=== PATIENT | male | born 1940 | race Caucasian/White ===

== ENCOUNTER 2016-12-09 17:07 | Inpatient (IN) ==
--- NOTE | 2016-12-09 17:49 | Emergency Department Note ---
Disposition Clinical Impression: Retroperitoneal hematoma, Hemorrhagic shock, History of mitral valve repair Hypotension Qualifiers: Hypotension type: unspecified hypotension type Qualified Code(s): I95.9 - Hypotension, unspecified Disposition: Admitted As Inpatient Condition: Critical Time of Disposition: 22:23 Abdominal Pain HPI - General Chief Complaint: ED Abdominal Pain Stated Complaint: abdominal pain Time Seen by Provider: 12/09/16 17:17 Source: patient, EMS Mode of arrival: EMS Limitations: no limitations Nursing Notes Reviewed: Yes Vital Signs Reviewed: Yes - History of Present Illness HPI Narrative: 76-year-old male presents to the ED via EMS as a [place] resident for abdominal pain. EMS reports left lower quadrant abdominal pain over the past 3 days. [facility] and was sent here for further evaluation. Patient reports sharp constant abdominal pain in the left lower quadrant. Denies any radiation of the pain. Denies any aggravating factors. Denies any nausea or vomiting. Does report constipation over the past 3 days. Denies any urinary complaints. Denies any fevers or recent illness. Denies any chest pain or shortness of breath. [facility] he had a elevated white blood cell count 27.2. His code status is DNR CCA. History of CAD, pacemaker, squamous cell carcinoma of the lung, CVA with left- sided weakness, splenectomy Pain Scale: 6 - Related Data Home Medications Medication Instructions Recorded Confirmed Acetaminophen [Tylenol] 650 mg PO Q8H PRN 12/09/16 12/09/16 Albuterol Sulfate [Albuterol 2 puff IH Q6H PRN 12/09/16 12/09/16 Inhaler] Allopurinol [Zyloprim 300 MG] 300 mg PO DAILY 12/09/16 12/09/16 Aspirin Enteric Coated [Aspirin EC] 81 mg PO DAILY 12/09/16 12/09/16 Benzonatate [Tessalon] 100 mg PO TID PRN 12/09/16 12/09/16 Bisacodyl [Dulcolax] 10 mg PO Q48H PRN 12/09/16 12/09/16 Calcium Carbonate/Vitamin D3 2 each PO BID 12/09/16 12/09/16 [Calcium 250+D Tablet] Cetirizine HCl [Zyrtec] 10 mg PO DAILY PRN 12/09/16 12/09/16 Cholecalciferol (D-3) [Vitamin D] 1,000 unit PO DAILY 12/09/16 12/09/16 Docusate [Colace] 100 mg PO BID 12/09/16 12/09/16 Enoxaparin [Lovenox] 80 mg SQ Q12HR 12/09/16 12/09/16 Ferrous Sulfate 325 mg PO BIDWM 12/09/16 12/09/16 Furosemide [Lasix] 20 mg PO DAILY 12/09/16 12/09/16 Gabapentin [Neurontin] 800 mg PO BID 12/09/16 12/09/16 HYDROcodone/Acet 5/325 mg [[place] 2 tab PO Q6H PRN 12/09/16 12/09/16 5-325 mg] Ipratropium/Albuterol Neb [Duoneb] 3 ml IH QID PRN 12/09/16 12/09/16 L. Acidophilus/Pectin, [place] 1 each PO BID 12/09/16 12/09/16 [Acidophilus Probiotic Capsule] Losartan [Cozaar] 25 mg PO DAILY 12/09/16 12/09/16 Magnesium Hydroxide [Milk of 2,400 mg PO DAILY PRN 12/09/16 12/09/16 Magnesia] Magnesium Oxide [Mag-Ox] 400 mg PO BID 12/09/16 12/09/16 Melatonin [Melatin] 9 mg PO HS 12/09/16 12/09/16 Metoprolol [Lopressor] 25 mg PO BID 12/09/16 12/09/16 Mineral Oil/Petrolatum,White 1 appl OP HS 12/09/16 12/09/16 [Refresh P.m. Ointment] Nicotine Patch [Nicoderm] 7 mg TD DAILY 12/09/16 12/09/16 Potassium Chloride 20% [Potassium 20 meq PO Q48H 12/09/16 12/09/16 Chloride] Sennosides/Docusate Sodium [Senna 2 each PO DAILY 12/09/16 12/09/16 Plus] Sertraline [Zoloft] 100 mg PO DAILY 12/09/16 12/09/16 Simvastatin [Zocor] 20 mg PO HS 12/09/16 12/09/16 Tamsulosin [Flomax] 0.8 mg PO DAILY 12/09/16 12/09/16 Tiotropium [Spiriva] 18 mcg IH 0700 12/09/16 12/09/16 Warfarin [Coumadin] 12 mg PO DAILY 12/09/16 12/09/16 Xanthan Gum [Simplythick] 1 spray PO AD 12/09/16 12/09/16 guaiFENesin [Guaifenesin] 400 mg PO TID PRN 12/09/16 12/09/16 predniSONE [PredniSONE] See Taper PO TAPER 12/09/16 12/09/16 traZODone [TraZODone] 50 mg PO HS 12/09/16 12/09/16 Allergies Allergy/AdvReac Type Severity Reaction Status Date / Time felodipine Allergy See Verified 12/09/16 17:11 Comments fentanyl Allergy See Verified 12/09/16 17:11 Comments lisinopril Allergy See Verified 12/09/16 17:11 Comments Terazosin Allergy See Verified 12/09/16 17:11 Comments All systems ED: reviewed and negative except as stated. Constitutional: Denies: fever, chills Cardiovascular: Denies: chest pain, dyspnea on exertion Respiratory: Denies: cough, dyspnea Gastrointestinal: Reports: abdominal pain, constipation. Denies: nausea, vomiting, diarrhea Genitourinary: Denies: urgency, dysuria Musculoskeletal: Denies: back pain, neck pain Integumentary: Denies: rash, lesions Abdominal Pain PMH - Past Medical History Medical history: Reports: arthritis, coronary artery disease, CVA, hypertension , other Male Surgical History: Reports: pacemaker/AICD, splenectomy, other Psychiatric history: Reports: anxiety, depression - Social History Smoking status: Former smoker Alcohol use: Reports: none Drug use: Reports: none Physical Exam - General Limitations: no limitations General appearance: alert, in no apparent distress, other (soft spoken) - Head Head exam: atraumatic, normocephalic, normal inspection - Eye Eye exam: Present: normal appearance. Absent: scleral icterus - ENT ENT exam: normal exam, mucous membranes moist - Neck Neck exam: Present: normal inspection, full ROM - Chest Chest inspection: Present: normal inspection, symmetric chest wall rise, other ( pacemaker left chest wall) - Respiratory Respiratory exam: Present: normal lung sounds bilaterally. Absent: respiratory distress, wheezes - Expanded Respiratory Exam Location: decreased breath sounds: Right, Left - Cardiovascular Cardiovascular exam: Present: regular rate, normal rhythm, clicks (mitral, heard in the left sternal border), other (paced rhythm) - Abdominal Exam Abdominal exam: Present: soft, tenderness, distention (distended abdomen mostly over LLQ), guarding (left quadrant), normal bowel sounds, mass (LLQ, not pulsatile), hernia (umbilical), other (ecchymosis to LLQ). Absent: rebound, rigidity, pulsatile mass Abdominal tenderness: Present: LLQ, moderate - Rectal Exam Right Of Way Agent present during exam: Yes Rectal exam: Present: normal rectal tone, other (green loose stool around the anus and in the rectal vault). Absent: black stool, bloody stool, hemorrhoids - Extremities Exam Extremities exam: Present: normal inspection, normal capillary refill, other ( LEFT SIDE WEAKNESS). Absent: tenderness, pedal edema, calf tenderness - Neurological Exam Neurological exam: Present: alert, oriented X3 - Expanded Neurological Exam Patient oriented to: Present: person, place, time Speech: Present: fluid speech Cranial nerves: EOM function (II, III, IV, ): Normal, facial sensation (V): Normal, facial palsy (VII): Normal, gag reflex (IX): Normal, spinal accessory function (XI): Normal, tongue deviation (XII): Normal Motor strength - LUE: 1/5 Motor strength - RUE: 5/5 Motor strength - LLE: 1/5 Motor strength - RLE: 5/5 - Psychiatric Psychiatric exam: Present: normal affect, normal mood - Skin Skin exam: Present: warm, dry, intact, normal color. Absent: cyanosis, diaphoresis Course Course Narrative: 76-year-old male presents with left lower quadrant abdominal pain. Ongoing for the past 3 days. [facility]. He had developed an anterior wall hematoma in the LLQ thought due to lovenox injections. He is tender to the left lower quadrant his abdomen is moderately soft and distended with guarding. There is an ecchymosis to the LLQ. Normal bowel sounds in all 4 quadrants. Left side weakness from prior CVA. Alert and oriented to person place and time. Review of his lab values obtained at outside hospital reveals a leukocytosis 27.2. Patient is afebrile here. Concerning for possible diverticulitis or other abdominal process such as bleeding. CT scan of the abdomen and pelvis ordered. Denies known AAA. - Reevaluation(s) Reevaluation #1: Patient continues to await CT scan. Notified of BP low SBP 60s. Patient was somnolent but easily arousable. He currently has IV access in the right forearm 20G. Will give 1L of NS. Patient reportedly lives 90/60s per review of medical chart and EMS reports. Review of records reveals manager terminal anticoagulant use of Coumadin and Lovenox. He has history of abdominal wall hematoma from the anticoagulant. INR 2.[address] femoral CVC for possible pressor support. Bedside ultrasound of his abdomen, due to habitus unable to obtain good views of his aorta or IVC. Appears to be a fluid collection in the LLQ, concern for bowel gas to suggest abscess from diverticulitis, volvulus or possible hematoma. When his BP is in the 70s-80s he is awake and alert interactive. Time: 18:22 Reevaluation #2: Pressure responding to fluids. Right femoral CVC placed without complications. Current BP is 115/64. He is stable to go to CT scan of abdomen and pelvis. If pressures continue remain low may consider pressors. Time: 19:17 Reevaluation #3: Radiologist called on CT results to Dr. Hanley. Reports large retroperitoneal hematoma, unable to determine acuity. After discussion with IR, will obtain CTA of abdomen and pelvis. Pressures are labile. Will consider blood transfusion. Will recheck a H/H here [facility]. Time: 20:00 Additional Reevaluation(s): CTA of abdomen/pelvis reveals active bleed to inferior epigastric artery. Will page Dr. Beckman, IR, again. Patient has been updated and is aware of the situation. Continues to voice that he is DNR-CCA. Discussed that we will continue to do everything up until cardiac arrest. Patient voices understanding and continues to agree with treatment and plan. Currently is normotensive 106/ 80 with 3rd liter and blood transfusing. H/H 9.9. Stool hemoccult is positive. Will need admission to ICU. Continues to awake and answering questions. Complaining of pain at the moment now. Due to hypotension secondary to hemorrhagic shock limited by medications to give. Allergy to fentanyl. Will give small dose of morphine 2mg. Unable to access his femoral nerve due to sequelae of prior CVA. Does not wish for us to contact anyone at this time, such as his , number provided on [facility] [phone] [id number] last BP 77/46, he has received 3L of NS and on 2nd uPRBC. Last BP above SBP 90s was from 2250. Continues to be awake and alert and agitated. Earlier when he was in 60s he was somnolent and easily arousable. I do believe these blood pressures and he likely does not live above SBP 100s. - Consultations Consultation #1: Reviewed the CT of abd/pelvis prior to radiology interpretation, reveals a large left retroperitoneal hematoma. Speaking to IR Dr. Beckman for possible embolization and intervention. Unable to determine any active bleeding due to absence of contrast which was due to urgency and elevated creatinine. His INR is 2.1 but he has history of mitral valve replacement. IR aware of his labs and labile blood pressures, continues to recommend CTA of abdomen and pelvis to locate active bleed. Reports if there is active bleeding, here at [facility] have all the capabilities for any intervention as needed. Will continue with 2nd liter of NS. If not responding will give blood. Time: 19:51 Consultation #2: Speaking again to Dr. Underwood, IR, for consult and any recommendations on intervention. Would like INR 1.5 even 1.7 before any intervention. Since the inferior epigastric artery is superficial may attempt to tamponade with pressure. Issues with INR and mitral valve. Discuss placing on a heparin drip, Vit K, and stopping coumadin to correct INR. Do not feel comfortable with order at this time. Will speak to hospitalist for admission to ICU. IR ok to consult through night if worse. Plan to round on patient in the morning they report. Time: 21:44 Consultation #3: Spoke with on-call hospitalist Dr. Bee, ok to admit for hemorrhagic shock and retroperitoneal hematoma. No further orders at this time Time: 22:53 Additional Consultation(s): Spoke with Dr. Vieyra, recommends FFP during procedure if needed. Agree to not start Vit K or heparin drip. Advises strongly against Vit K due to mitral valve replacement. Will see patient tomorrow morning. Hospitalist called back requesting to get surgery involved. Spoke with Dr. Jiménez, no surgical intervention for retroperitoneal hematoma. Treatment is to reverse anticoagulate but complicated due to mitral valve. If needed, transfer to [place] or another [place] facility. Vital Signs Temperature 96.8 F L 12/09/16 17:12 Pulse Rate 72 12/09/16 17:12 Respiratory Rate 18 12/09/16 17:12 Blood Pressure 84/70 12/09/16 17:12 O2 Sat by Pulse Oximetry 97 12/09/16 17:12 Temperature 97.6 F 12/09/16 23:42 Pulse Rate 62 12/09/16 23:55 Respiratory Rate 18 12/09/16 23:55 Blood Pressure 72/49 12/09/16 23:55 O2 Sat by Pulse Oximetry 95 12/09/16 23:55 Oxygen Delivery Oxygen Delivery Nasal Cannula Procedures - Central Line Placement Right Femoral Central Line Inserted*: Yes Central Line Catheter Replacement*: No Central Line Insertion: emergent Consent Obtained: verbal consent Procedural Pause: verify patient name and date of , timeout performed per policy, laura and assess the site, assemble equipment and verify supplies, perform hand hygiene Patient Placed on Monitor/Pulse Ox: Yes During the Procedure: clinician is wearing sterile gloves, cap, mask,& gown during insertion, sterile field and sterile technique are maintained, patient's face is covered with drape or mask and wearing a cap, everyone in room is wearing a mask Central Line Prep: Chlorhexidine scrub Prep the Procedure Site: apply chloraprep to the skin using a back and forth scrubbing motion, apply chloraprep for 30 seconds (upper body), 1-2 min ( femoral sites) (applied to right and left femoral sites), allow prep to dry, drape the patient with a full body drape Local Anesthetic: lidocaine 1% Amount of anesthesia used (mL): 3 Ultrasound Used for Placement: Yes Central Line Lumen Inserted: triple Post Procedure: sutured in place, good blood return, all ports aspirated, flushed, capped, sterile dressing applied, guide wire removed and visualized Post Procedure X-Ray: other (femoral CVC, no CXR) Patient Tolerated Procedure: well Complications: none Name of Clinician Inserting Central Line: Gaurang Dickerson Clinician Assisting/Completing Checklist: Dr. Brennan Ovalles Date: 12/09/16 Time: 19:19 Abdominal Pain - Differential Diagnosis Differential Diagnosis: Likely: abdominal pain non-specific, AAA - Medical Records Medical records reviewed: Yes I reviewed the patient's medical records. - Lab Data Lab results reviewed: Yes I reviewed the patient's lab results. Result diagrams: 12/09/16 18:52 Lab Results 12/09/16 12/09/16 12/09/16 Range/Units 18:52 18:52 19:10 Hgb 9.9 L (12.9-16.9) g/dL Hct 31.2 L (37.5-50.1) % Stool Occult Blood Positive A (Negative) Blood Type O POSITIVE Antibody Screen NEGATIVE Crossmatch See Detail Review of [place] labs at 1518, WBC 27.2, Hgb 11.5, Trop 0.027, INR 2.1, Cr 1.66, eGFR 42.9, BUN 25. [facility] earlier 0630 with Cr 0.8 and WBC 14.6. - Radiology Data Radiology results reviewed: Yes I reviewed the patient's radiology results. Abdomen/Pelvis CT 12/09/16 17:26 IMPRESSION: 1. Large left retroperitoneal hematoma, difficult to accurately date and localize the source of bleeding. Active bleeding is not excluded. 2. Christopher catheter and right femoral central venous catheter is present. Critical results were called by Dr. Delroy Armenta MD to Dr. Sinan Hanley on 12/09/2016 at 20:00. D/ / Delroy Armenta MD / Delroy Armenta MD Interpreting Provider: Delroy Armenta MD Chest X-Ray 12/09/16 19:06 IMPRESSION: Linear densities at the left lung base most likely atelectasis. No acute abnormality otherwise D/ / Vitor Villaseñor / Vitor Villaseñor Interpreting Provider: Vitor Villaseñor Abdomen/Pelvis CTA 12/09/16 20:06 IMPRESSION: 1. Redemonstration of large left rectus sheath and retroperitoneal hematoma. Active arterial bleeding from the inferior epigastric artery in the rectus sheath and from a second probable small vessel in the retroperitoneal hematoma as outlined above. 2. Otherwise stable CT of the abdomen and pelvis. 3. Moderate aortoiliac plaque disease. Emergent findings called to Dr. Hanley on 12/09/2016 at 9:25 p.m. D/ / 12/09/2016 21:42:26 Sean Jacob MD / [email or web address] Interpreting Provider: Sean Jacob MD Critical Care Time Critical Care Time: Yes Attestation: 75 Attestation Statement - Attestation Attestation: I examined this patient and my medical decision-making was reviewed with the Resident Physician. I agree with the documented findings, disposition and treatment plan as described except to the extent set forth below. Patient anticoagulated for mechanical mitral valve who presents hemodynamically unstable with a large intraperitoneal hematoma and active bleed from the inferior epigastric artery. I have perform multiple evaluations of this patient , had multiple conversations with the resident regarding patient management. I also just concluded a 15-20 minute conversation with the interventional radiologist regarding this patient's care. This is a very difficult case. On one hand, he should be embolized. She has now had 5 consecutive blood pressure readings under 90 systolic over the course of about 90 minutes despite 3 L of saline and almost 2 units of packed red cells. On the other hand, the interventional radiologist is concerned because it is a very small caliber vessel that is bleeding on the CTA, and he is not positive that he can cannulate it. He is concerned about putting a sheath and a coagulopathic patient and exposing into the risk of those complications, and then performing the procedure and not being successful. It is a difficult decision. The interventional radiologist is currently in route to evaluate the patient and make a final decision, but after considering the potential risks and potential benefits of the procedure, and I have come to a tentative agreement that the more aggressive path Is probably preferable. The hospitalist's come down and evaluated the patient as well, Dr. Dickerson and the hospitalist have both consulted by phone with the vascular surgeon as well. Type and cross for 2 units of FFP have been ordered, per the recommendation of the credit portfolio advisor that vitamin K not be given, and then if temporary reversal of anticoagulation is required for the procedure, that FFP should be given during the procedure. Critical care time: I was directly primarily involved in the care of this patient for 75 minutes excluding procedures.
[2016-12-09] MEDS ORDERED: 0.9 % Sodium Chloride 2,000 ML ONE (17:55)
[2016-12-09] MEDS ORDERED: 0.9 % Sodium Chloride 1,000 ML IVC ONE (18:23)
[2016-12-09] MEDS ORDERED: 0.9 % Sodium Chloride 500 ML ONE (20:17)
[2016-12-09 20:20] LABS: Hematocrit 31.2 % (37.5-50.1); Hemoglobin 9.9 g/dL (12.9-16.9)
[2016-12-09] MEDS ORDERED: *HR* Morphine 2 MG/ML SYRINGE IVP ONE (21:51)
[2016-12-09] MEDS ORDERED: Ondansetron 4 MG/2 ML VIAL IVP ONE (22:02)
[2016-12-10] MEDS ORDERED: Heparin 1,000 UNITS/500 mL NS 500 ML ONE (00:15)
[2016-12-10] MEDS ORDERED: 0.9 % Sodium Chloride 500 ML ONE (00:15)
[2016-12-10] MEDS ORDERED: 0.9 % Sodium Chloride 2,000 ML ONE (00:41)
[2016-12-10] MEDS ORDERED: Ipratropium/Albuterol Neb 3 ML IH PRN (01:08)
--- NOTE | 2016-12-10 01:19 | Internal Med History&Physical ---
Date of Encounter: 12/10/16 Time of Encounter: 01:12 Assessment and Plan (1) H/O mitral valve replacement with mechanical valve Current visit: Yes Status: Acute Patient is on Coumadin INR's 2.1 patient is having a large retroperitoneal hematoma with active bleeding so would have to discontinue Coumadin and give fresh frozen plasma. Valve replacement according to patient was 4 years ago. On exam metallic click of mitral valve is well audible (2) Retroperitoneal hematoma Current visit: Yes Status: Acute Patient has a large retroperitoneal hematoma and large left rectus sheath hematoma with an active bleeder. I discussed the case of vascular surgery recommended optimal resuscitation and reversal of anticoagulation. Case has also been discussed with interventional radiology will take the patient to the radiology suite for possible embolization of the bleeding vessel. 2 units of fresh frozen plasma will be given. Will be kept NPO. Appreciate and put from vascular surgery interventional radiology. (3) Hemorrhagic shock Current visit: Yes Status: Acute Patient had received so far 4 L of normal saline, 2 units of packed red blood cells, and will be receiving shortly 2 units of fresh frozen Plasma. Blood pressure remains borderline systolic running in the 80s to 100s. If MAP<65 levofed will be initiated. Patient is having about 200 mls of urine in the Christopher catheter. Hopefully once anticoagulation is reversed bleeding will stop. Patient has a white count according to the report of 29,000. I would keep him on Zosyn empirically. Follow H&H Q6 hours and transfuse as needed Internal Medicine - H&P: HPI Chief complaint: abdominal pain History of present illness: Mr. Hurtado is a 76 year old male with multiple medical problems including a prosthetic mitral valve on anti-coagulation with Coumadin was transferred from the [place] for further evaluation of abdominal pain. For the past 2 days patient has been having pain in the lower abdomen more on the left side. Pain has been getting worse and abdomen is being more distended. He has been nauseous has not had a bowel movement in 2 to 3 days and unable to tolerate any PO diet. He notices that pain worsens with any movement. Workup revealed a rapidly declining hemoglobin from [address] scan of the abdomen revealed a large rectus sheath and retroperitoneal hematoma with an active bleeding vessel. Patient had received 4 L of fluids and to packed red blood cells in the emergency room and remains hypotensive with maps less than 65. Interventional radiology have been contacted and will emergency evaluate the patient for embolization. INR was 2.1. Past Med Surg Social Fam HX - Past Medical History Medical history: arthritis, coronary artery disease, CVA, hypertension, other Psychiatric history: anxiety, depression - Social History Smoking Status: Former smoker Smokeless Tobacco Status: No Alcohol use: none Drug use: none Internal Medicine - H&P: Meds Acetaminophen [Tylenol] 650 mg PO Q8H PRN 12/09/16 [History] Albuterol Sulfate [Albuterol Inhaler] 2 puff IH Q6H PRN 12/09/16 [History] Allopurinol [Zyloprim 300 MG] 300 mg PO DAILY 12/09/16 [History] Aspirin Enteric Coated [Aspirin EC] 81 mg PO DAILY 12/09/16 [History] Benzonatate [Tessalon] 100 mg PO TID PRN 12/09/16 [History] Bisacodyl [Dulcolax] 10 mg PO Q48H PRN 12/09/16 [History] Calcium Carbonate/Vitamin D3 [Calcium 250+D Tablet] 2 each PO BID 12/09/16 [ History] Cetirizine HCl [Zyrtec] 10 mg PO DAILY PRN 12/09/16 [History] Cholecalciferol (D-3) [Vitamin D] 1,000 unit PO DAILY 12/09/16 [History] Docusate [Colace] 100 mg PO BID 12/09/16 [History] Enoxaparin [Lovenox] 80 mg SQ Q12HR 12/09/16 [History] Ferrous Sulfate 325 mg PO BIDWM 12/09/16 [History] Furosemide [Lasix] 20 mg PO DAILY 12/09/16 [History] Gabapentin [Neurontin] 800 mg PO BID 12/09/16 [History] HYDROcodone/Acet 5/325 mg [[place] 5-325 mg] 2 tab PO Q6H PRN 12/09/16 [History] Ipratropium/Albuterol Neb [Duoneb] 3 ml IH QID PRN 12/09/16 [History] L. Acidophilus/Pectin, [place] [Acidophilus Probiotic Capsule] 1 each PO BID [History] Losartan [Cozaar] 25 mg PO DAILY 12/09/16 [History] Magnesium Hydroxide [Milk of Magnesia] 2,400 mg PO DAILY PRN 12/09/16 [History] Magnesium Oxide [Mag-Ox] 400 mg PO BID 12/09/16 [History] Melatonin [Melatin] 9 mg PO HS 12/09/16 [History] Metoprolol [Lopressor] 25 mg PO BID 12/09/16 [History] Mineral Oil/Petrolatum,White [Refresh P.m. Ointment] 1 appl OP HS 12/09/16 [ History] Nicotine Patch [Nicoderm] 7 mg TD DAILY 12/09/16 [History] Potassium Chloride 20% [Potassium Chloride] 20 meq PO Q48H 12/09/16 [History] Sennosides/Docusate Sodium [Senna Plus] 2 each PO DAILY 12/09/16 [History] Sertraline [Zoloft] 100 mg PO DAILY 12/09/16 [History] Simvastatin [Zocor] 20 mg PO HS 12/09/16 [History] Tamsulosin [Flomax] 0.8 mg PO DAILY 12/09/16 [History] Tiotropium [Spiriva] 18 mcg IH 0700 12/09/16 [History] Warfarin [Coumadin] 12 mg PO DAILY 12/09/16 [History] Xanthan Gum [Simplythick] 1 spray PO AD 12/09/16 [History] guaiFENesin [Guaifenesin] 400 mg PO TID PRN 12/09/16 [History] predniSONE [PredniSONE] See Taper PO TAPER 12/09/16 [History] traZODone [TraZODone] 50 mg PO HS 12/09/16 [History] Allergies felodipine Allergy (Verified 12/09/16 17:11) See Comments fentanyl Allergy (Verified 12/09/16 17:11) See Comments lisinopril Allergy (Verified 12/09/16 17:11) See Comments Terazosin Allergy (Verified 12/09/16 17:11) See Comments All Systems PM: A 10-system review of systems was performed and is negative for pertinent findings except as documented above in the HPI. Review of systems: 10 point review systems is negative except for HPI - Constitutional Vitals: Temp Pulse Resp BP Pulse Ox 97.6 F 65 22 99/54 100 12/09/16 23:42 12/10/16 01:11 12/10/16 01:11 12/10/16 01:11 12/10/16 01:11 Exam: Gen.: patient is oriented times 3, lethargic cardiac: Well audible metallic click of mitral valve chest: Diminished air entry abdomen distended, tender, guarding and rigidity. lower extremity no swelling. Neuro: no new focal deficits Internal Med - H&P Results - Labs CBC & Chem 7: 12/09/16 18:52
[2016-12-10] MEDS ORDERED: Acetaminophen 325 MG TABLET PO PRN (01:36)
--- NOTE | 2016-12-10 01:36 | IR Procedure Note ---
Date of procedure: 12/10/16 Consent Obtained: Verbal consent Timeout: Correct patient and procedure verified, Time out performed, Skin prep completed Local anesthetic: Lidocaine 1% Indications: Retroperitoneal hemorrhage Procedure Performed: Pelvic arteriogram Results/Findings: Active bleeding left inf epigastric artery. Successful embolization Complications: None; Tolerated procedure well (Monitor on floor)
[2016-12-10] MEDS ORDERED: Piperacillin/Tazobactam 3.375 GM in D5% in Water (Mini-Bag+) 100 ML IVPB SCH (02:00)
[2016-12-10] MEDS ORDERED: 0.9 % Sodium Chloride 250 ML ONE ×3 (02:22→15:17)
[2016-12-10] MEDS: 0.9 % Sodium Chloride 1,000 ML IVC SCH ×3 (03:20→16:29)
[2016-12-10 03:47] LABS: Basophils % 0.1 %; Hemoglobin 8.8 g/dL (12.9-16.9)
[2016-12-10 03:49] LABS: Hematocrit 27.3 % (37.5-50.1); Immature Granulocytes % 2.6 % (0-4); Lymphocytes # 0.6 K/mcL (0.6-4.6); Lymphocytes % 1.9 %; Mean Corpuscular HGB Conc 32.2 g/dL (31.6-35.5); Mean Corpuscular Volume 93.2 fL (83.0-100.0); Mean Platelet Volume 10.9 fL (9.4-12.4); Monocytes # 2.8 K/mcL (0.0-1.3); Monocytes % 8.9 %; Platelet Count 284 K/mcL (140-400); Red Blood Count 2.93 M/mcL (4.19-5.50); Red Cell Distribution Width 17.6 % (11.5-14.5); Segmented Neutrophils % 86.5 %
[2016-12-10 03:51] LABS: Neutrophils # 27.3 K/mcL (1.6-8.9)
[2016-12-10 03:53] LABS: INR 2.3; Prothrombin Time 25.4 Seconds (9.4-12.1)
[2016-12-10 03:55] LABS: Activated Partial Thrombo Time 27.4 Seconds (26.0-36.0)
[2016-12-10 04:00] LABS: Albumin 2.9 g/dL (3.5-5.0); Albumin/Globulin Ratio 1.2 (1.1-2.2); Bilirubin,Total 0.8 mg/dL (0.2-1.2); Calcium 8.2 mg/dL (8.6-10.8); Globulin 2.4 g/dL (2.4-3.5); Magnesium 1.9 mg/dL (1.6-2.6); Total Protein 5.3 g/dL (6.0-8.3)
[2016-12-10] MEDS ORDERED: Vasopressin 40 UNIT in D5% in Water 100 ML IV SCH (04:00)
[2016-12-10] MEDS ORDERED: Calcium Gluconate 1,000 MG in D5% in Water 100 ML IVPB ONE (04:13)
[2016-12-10 04:15] LABS: Platelet Estimate Normal (Normal)
[2016-12-10] MEDS ORDERED: Sodium Bicarbonate 50 MEQ in 0.45 % Sodium Chloride 1,000 ML IVC SCH (04:15)
[2016-12-10] MEDS ORDERED: *HR* Dextrose 50 % in Water (Syg) 50 ML SYRINGE IVP ONE (04:15)
[2016-12-10] MEDS ORDERED: Insulin Human Regular 8 UNIT in 0.9 % Sodium Chloride 10 ML IV ONE (04:15)
[2016-12-10 04:20] LABS: VBG HCO3 22.3 mEq/L (21-27); VBG PH 7.2 pH Units (7.32-7.42)
[2016-12-10 07:00] LABS: Calcium 8.1 mg/dL (8.6-10.8)
[2016-12-10 07:01] LABS: Hematocrit 20.1 % (37.5-50.1); Hemoglobin 6.6 g/dL (12.9-16.9); Mean Corpuscular HGB Conc 32.8 g/dL (31.6-35.5); Mean Corpuscular Hemoglobin 29.9 pg (28.0-33.3); Mean Platelet Volume 10.3 fL (9.4-12.4); Platelet Count 254 K/mcL (140-400); Potassium 4.9 mEq/L (3.5-4.5); Red Blood Count 2.21 M/mcL (4.19-5.50); Red Cell Distribution Width 17.5 % (11.5-14.5)
[2016-12-10] MEDS ORDERED: Sennosides 8.6 MG TABLET PO PRN (07:09)
[2016-12-10 07:47] LABS: Lymphocytes # 0.5 K/mcL (0.6-4.6); Monocytes # 0.5 K/mcL (0.0-1.3); Neutrophils # 24.7 K/mcL (1.6-8.9); Platelet Estimate Normal (Normal)
--- NOTE | 2016-12-10 08:38 | Pulmonology Consult Note ---
<Joanna Munguia - Last Filed: 12/10/16 14:46> Date of Encounter: 12/10/16 Time of Encounter: 08:18 Assessment and Plan (1) Anemia due to acute blood loss Current Visit: Yes Status: Acute Hemoglobin at 6 AM was 6.6, this was after transfusion of 2 units pRBCs and 2 units FFP (+ at least 4 L NS) currently s/p embolization Plan to transfuse 1 unit pRBC and recheck hemoglobin (2) Retroperitoneal hematoma Current Visit: Yes Status: Acute inferior epigastric artery has been embolized by IR repeat CT scan to check for progression (3) Rectus sheath hematoma Current Visit: Yes Status: Acute probably due to lovenox use Qualifiers: Encounter type: initial encounter Qualified Code(s): S30.1XXA - Contusion of abdominal wall, initial encounter (4) Neutrophilic leukocytosis Current Visit: Yes Status: Acute WBC trend 27.2([place])>31.5>25.7 Broad-spectrum antibiotics coverage with Zosyn (5) Lactic acidosis Current Visit: Yes Status: Acute Due to acute blood loss Improving Continue to monitor (6) H/O mitral valve replacement with mechanical valve Current Visit: Yes Status: Acute Valve replacement 4 years ago Home medications include Coumadin and Lovenox History of Present Illness Consult date: 12/10/16 Requesting physician: Norman Lezama Reason for consult: other (hemorrhagic shock) Chief complaint: retoperitoneal hematoma History of present illness: Rita Hurtado is a 76 yo M who presented to the ER with a 3 day history of LLQ pain, constipation, nausea, and inability to tolerate PO intake. He was admitted for hemorrhagic shock due to rectus sheath/retroperitoneal hematoma due to bleeding inferior epigastric artery. This was embolized by IR. He received at least 4L NS, 2 units pRBCs, 2 units FFP. This morning he is unable to get comfortable in bed and has some back pain. He has a PMH of mitral valve replacement with mechanical valve, CVA with left- sided weakness, CAD, pacemaker, splenectomy, squamous cell carcinoma of the lung. Past Med Surg Social Fam HX - Past Medical History Medical history: arthritis, cancer (Squamous cell carcinoma of the lung), coronary artery disease, CVA (With left-sided weakness), hypertension, other ( Mitral valve replacement, splenectomy, pacemaker) Psychiatric history: anxiety, depression - Social History Smoking Status: Former smoker Smokeless Tobacco Status: No Alcohol use: none Drug use: none Medications and Allergies Acetaminophen [Tylenol] 650 mg PO Q8H PRN 12/09/16 [History] Albuterol Sulfate [Albuterol Inhaler] 2 puff IH Q6H PRN 12/09/16 [History] Allopurinol [Zyloprim 300 MG] 300 mg PO DAILY 12/09/16 [History] Aspirin Enteric Coated [Aspirin EC] 81 mg PO DAILY 12/09/16 [History] Benzonatate [Tessalon] 100 mg PO TID PRN 12/09/16 [History] Bisacodyl [Dulcolax] 10 mg PO Q48H PRN 12/09/16 [History] Calcium Carbonate/Vitamin D3 [Calcium 250+D Tablet] 2 each PO BID 12/09/16 [ History] Cetirizine HCl [Zyrtec] 10 mg PO DAILY PRN 12/09/16 [History] Cholecalciferol (D-3) [Vitamin D] 1,000 unit PO DAILY 12/09/16 [History] Docusate [Colace] 100 mg PO BID 12/09/16 [History] Enoxaparin [Lovenox] 80 mg SQ Q12HR 12/09/16 [History] Ferrous Sulfate 325 mg PO BIDWM 12/09/16 [History] Furosemide [Lasix] 20 mg PO DAILY 12/09/16 [History] Gabapentin [Neurontin] 800 mg PO BID 12/09/16 [History] HYDROcodone/Acet 5/325 mg [[place] 5-325 mg] 2 tab PO Q6H PRN 12/09/16 [History] Ipratropium/Albuterol Neb [Duoneb] 3 ml IH QID PRN 12/09/16 [History] L. Acidophilus/Pectin, [place] [Acidophilus Probiotic Capsule] 1 each PO BID [History] Losartan [Cozaar] 25 mg PO DAILY 12/09/16 [History] Magnesium Hydroxide [Milk of Magnesia] 2,400 mg PO DAILY PRN 12/09/16 [History] Magnesium Oxide [Mag-Ox] 400 mg PO BID 12/09/16 [History] Melatonin [Melatin] 9 mg PO HS 12/09/16 [History] Metoprolol [Lopressor] 25 mg PO BID 12/09/16 [History] Mineral Oil/Petrolatum,White [Refresh P.m. Ointment] 1 appl OP HS 12/09/16 [ History] Nicotine Patch [Nicoderm] 7 mg TD DAILY 12/09/16 [History] Potassium Chloride 20% [Potassium Chloride] 20 meq PO Q48H 12/09/16 [History] Sennosides/Docusate Sodium [Senna Plus] 2 each PO DAILY 12/09/16 [History] Sertraline [Zoloft] 100 mg PO DAILY 12/09/16 [History] Simvastatin [Zocor] 20 mg PO HS 12/09/16 [History] Tamsulosin [Flomax] 0.8 mg PO DAILY 12/09/16 [History] Tiotropium [Spiriva] 18 mcg IH 0700 12/09/16 [History] Warfarin [Coumadin] 12 mg PO DAILY 12/09/16 [History] Xanthan Gum [Simplythick] 1 spray PO AD 12/09/16 [History] guaiFENesin [Guaifenesin] 400 mg PO TID PRN 12/09/16 [History] predniSONE [PredniSONE] See Taper PO TAPER 12/09/16 [History] traZODone [TraZODone] 50 mg PO HS 12/09/16 [History] Allergies felodipine Allergy (Verified 12/09/16 17:11) See Comments fentanyl Allergy (Verified 12/09/16 17:11) See Comments lisinopril Allergy (Verified 12/09/16 17:11) See Comments Terazosin Allergy (Verified 12/09/16 17:11) See Comments All Systems: A 10-system review of systems was performed and is negative for pertinent findings except as documented above in the HPI. - Constitutional Constitutional: no headache(s) - Cardiovascular Cardiovascular: no chest pain - Respiratory Respiratory: no dyspnea - Gastrointestinal Gastrointestinal: other (constipation) - Musculoskeletal Musculoskeletal: back pain Physical Examination Vital Signs: Vital Signs, Last 4 Hours Temp Pulse Resp BP Pulse Ox 12/10/16 06:05 117 22 133/78 96 12/10/16 06:00 117 12/10/16 05:38 98.9 F 113 21 135/74 12/10/16 05:00 105 22 129/74 99 12/10/16 04:39 98.1 F 105 18 126/67 12/10/16 04:29 97.7 F 12/10/16 04:24 98.4 F 103 24 115/64 General appearance: no acute distress Eyes: nonicteric ENT: oropharynx moist Neck: supple Effort: normal Inspection: normal Auscultation: bilateral: clear Cardiovascular: regular rate and rhythm, other (Click of mechanical valve ) Gastrointestinal: hypoactive bowel sounds, tender (diffuse), other (semi-firm) Results - Laboratory Findings CBC and BMP: 12/10/16 14:30 12/10/16 06:42 PT/INR, D-dimer PT 25.4 Seconds (9.4-12.1) H 12/10/16 03:42 Abnormal lab findings: Abnormal lab results WBC 25.7 K/mcL (4.3-11.1) H 12/10/16 06:42 RBC 2.21 M/mcL (4.19-5.50) L 12/10/16 06:42 Hgb 6.6 g/dL (12.9-16.9) L D 12/10/16 06:42 Hct 20.1 % (37.5-50.1) L 12/10/16 06:42 RDW 17.5 % (11.5-14.5) H 12/10/16 06:42 Neutrophils # 24.7 K/mcL (1.6-8.9) H 12/10/16 06:42 Lymphocytes # 0.5 K/mcL (0.6-4.6) L 12/10/16 06:42 PT 25.4 Seconds (9.4-12.1) H 12/10/16 03:42 VBG pH 7.20 pH Units (7.32-7.42) L 12/10/16 03:37 VBG pCO2 57 mmHg (41-51) H 12/10/16 03:37 Potassium 4.9 mEq/L (3.5-4.5) H D 12/10/16 06:42 Chloride 110 mEq/L (98-109) H 12/10/16 06:42 BUN 33 mg/dL (8-26) H 12/10/16 06:42 Creatinine 2.11 mg/dL (0.72-1.25) H 12/10/16 06:42 Est GFR ( Amer) 37 (> 60) L 12/10/16 06:42 Est GFR (Non-Af Amer) 31 (> 60) L 12/10/16 06:42 Glucose 109 mg/dL (70-99) H 12/10/16 06:42 Calculated Osmolality 302 (280-300) H 12/10/16 06:42 Lactic Acid 3.6 mmol/L (0.5-2.2) H 12/10/16 06:42 Calcium 8.1 mg/dL (8.6-10.8) L 12/10/16 06:42 ALT 63 Units/L (0-55) H 12/10/16 03:42 Serum Total Protein 5.3 g/dL (6.0-8.3) L 12/10/16 03:42 Albumin 2.9 g/dL (3.5-5.0) L 12/10/16 03:42 Stool Occult Blood Positive (Negative) A 12/09/16 19:10 - Clinical Findings Intake & Output: Intake & Output 12/09/16 12/10/16 12/10/16 23:59 07:59 15:59 Intake Total 820.08 / 820.08 Output Total 300 / 300 Balance 520.08 / 520.08 Consult Discharge Plan - Plan [facility] Care Provider[facility] - <Jeff Johnson - Last Filed: 12/10/16 16:41> Date of Encounter: 12/10/16 All Systems: A 10-system review of systems was performed and is negative for pertinent findings except as documented above in the HPI. Physical Examination Vital Signs: Vital Signs, Last 4 Hours Temp Pulse Resp BP Pulse Ox 12/10/16 16:13 97.5 F L 117 20 94/76 99 12/10/16 16:04 97.2 F L 112 16 112/79 99 12/10/16 16:03 97.5 F L 16 112/79 99 12/10/16 16:02 97.2 F L 115 20 94/76 12/10/16 15:28 97.7 F 120 22 90/59 100 12/10/16 14:00 107 20 96/64 100 12/10/16 13:09 98.0 F 99 20 100/62 12/10/16 13:00 98 20 100/62 100 12/10/16 12:41 97.9 F Results - Laboratory Findings CBC and BMP: 12/10/16 14:30 12/10/16 06:42 PT/INR, D-dimer PT 25.4 Seconds (9.4-12.1) H 12/10/16 03:42 Abnormal lab findings: Abnormal lab results WBC 25.7 K/mcL (4.3-11.1) H 12/10/16 06:42 RBC 2.21 M/mcL (4.19-5.50) L 12/10/16 06:42 Hgb 6.7 g/dL (12.9-16.9) L 12/10/16 14:30 Hct 20.3 % (37.5-50.1) L 12/10/16 14:30 RDW 17.5 % (11.5-14.5) H 12/10/16 06:42 Neutrophils # 24.7 K/mcL (1.6-8.9) H 12/10/16 06:42 Lymphocytes # 0.5 K/mcL (0.6-4.6) L 12/10/16 06:42 PT 25.4 Seconds (9.4-12.1) H 12/10/16 03:42 VBG pH 7.20 pH Units (7.32-7.42) L 12/10/16 03:37 VBG pCO2 57 mmHg (41-51) H 12/10/16 03:37 Potassium 4.9 mEq/L (3.5-4.5) H D 12/10/16 06:42 Chloride 110 mEq/L (98-109) H 12/10/16 06:42 BUN 33 mg/dL (8-26) H 12/10/16 06:42 Creatinine 2.11 mg/dL (0.72-1.25) H 12/10/16 06:42 Est GFR ( Amer) 37 (> 60) L 12/10/16 06:42 Est GFR (Non-Af Amer) 31 (> 60) L 12/10/16 06:42 Glucose 109 mg/dL (70-99) H 12/10/16 06:42 Calculated Osmolality 302 (280-300) H 12/10/16 06:42 Lactic Acid 3.9 mmol/L (0.5-2.2) H 12/10/16 13:28 Calcium 8.1 mg/dL (8.6-10.8) L 12/10/16 06:42 ALT 63 Units/L (0-55) H 12/10/16 03:42 Serum Total Protein 5.3 g/dL (6.0-8.3) L 12/10/16 03:42 Albumin 2.9 g/dL (3.5-5.0) L 12/10/16 03:42 Stool Occult Blood Positive (Negative) A 12/09/16 19:10 - Clinical Findings Intake & Output: Intake & Output 12/10/16 12/10/16 12/10/16 07:59 15:59 23:59 Intake Total 1070.08 / 1070.08 1150 / 1150 901.5 / 901.5 Output Total 340 / 340 Balance 730.08 / 730.08 1130 / 1130 901.5 / 901.5 - Attending Attestation I have examined the patient discussed the case with the resident. I reviewed all pertinent labs and imaging and discussed the case on multidisciplinary rounds. I agree with the above resident's documentation with the following additions. REGISTERED RESPIRATORY TECHNICIAN: Fatigued but otherwise alert and oriented without acute issue. Cardiovascular: Intermittent hypotension and tachycardia most likely related to acute retroperitoneal hemorrhage. History of mechanical mitral valve necessitating systemic anticoagulation with Coumadin. Pulmonary: Reported history of lung cancer which patient has elected to leave untreated. No acute issues. Nephrology: REBEKAH most likely prerenal due to hypotension and retroperitoneal hemorrhage. Continues to have urine output. Serum creatinine improving with resuscitation. GI: Abdominal distention most likely related to expanding hematoma. Keep nothing by mouth for now ID: No acute issues. HO: Significant retroperitoneal hematoma status post coiling by IR. Initially appeared as though hemostasis been obtained but clinical exam revealed evidence of expanding hematoma which was confirmed on CT abdomen. INR was subtherapeutic at 2.1 this morning and no further reversal was pursued due to conflicting concern of increased risk of hemorrhage versus thrombosis mechanical mitral valve. Evidence of recurrent hemorrhage this afternoon necessitated more aggressive reversal. Patient was given an additional 2 units of FFP as well as 15 mg vitamin K. Patient also received 2 additional units of PRBC. Endocrine: No acute issues. MSK: No acute issues. Disposition: Patient main ICU. Patient is DNR/DNI. Patient status has declined since admission to ICU this morning. Now hypotensive and requiring norepinephrine drip in addition to human blood product transfusion. Patient's and son are at bedside and confirm DNR/DNI wishes. They stated their concern regarding continued invasive procedure and subsequent discomfort constipation. Critical care time 75 minutes
[2016-12-10] MEDS: Piperacillin/Tazobactam 3.375 GM in D5% in Water (Mini-Bag+) 100 ML IVPB SCH ×3 (08:48→23:48)
[2016-12-10] MEDS ORDERED: Pantoprazole 40 MG VIAL IVP SCH (09:00)
--- NOTE | 2016-12-10 11:55 | Cardiology Consult Note ---
<Justin Diehl - Last Filed: 12/10/16 14:07> Date of Encounter: 12/10/16 Time of Encounter: 11:55 Assessment and Plan (1) H/O mitral valve replacement with mechanical valve Current Visit: Yes Status: Acute This is a resident progress note pending review by attending generator repairer Concern is balancing anticoagulation given patient's history of prosthetic mitral valve but also active GI bleed Hold anticoagulation until acute bleed stable Per , patient also has large left lung cancer mass diagnosed 1 month ago, recent bronchoscopy to embolize active bleed in lung, coumadin held for procedure and Lovenox started to bridge. This was about 5 days ago per . (2) Anemia due to acute blood loss Current Visit: Yes Status: Acute Discussion w patient/family: The assessment and plan as outlined above was discussed with the patient and/or family members who expressed understanding and agreement. All questions were answered. Thank you for involving us in the care of your patient. Please call with any questions. History of Present Illness Consult date: 12/10/16 Consult reason: Prosthetic mitral valve, anticoagulated with active bleed Chief complaint: Abdominal Pain History of present illness: Mr. Hurtado is a 76 year old male Past Med Surg Social Fam HX - Past Medical History Medical history: arthritis, cancer (Squamous cell carcinoma of the lung), coronary artery disease, CVA (With left-sided weakness), hypertension, other ( Mitral valve replacement, splenectomy, pacemaker) Psychiatric history: anxiety, depression - Social History Smoking Status: Former smoker Smokeless Tobacco Status: No Alcohol use: none Drug use: none Medications and Allergies Acetaminophen [Tylenol] 650 mg PO Q8H PRN 12/09/16 [History] Albuterol Sulfate [Albuterol Inhaler] 2 puff IH Q6H PRN 12/09/16 [History] Allopurinol [Zyloprim 300 MG] 300 mg PO DAILY 12/09/16 [History] Aspirin Enteric Coated [Aspirin EC] 81 mg PO DAILY 12/09/16 [History] Benzonatate [Tessalon] 100 mg PO TID PRN 12/09/16 [History] Bisacodyl [Dulcolax] 10 mg PO Q48H PRN 12/09/16 [History] Calcium Carbonate/Vitamin D3 [Calcium 250+D Tablet] 2 each PO BID 12/09/16 [ History] Cetirizine HCl [Zyrtec] 10 mg PO DAILY PRN 12/09/16 [History] Cholecalciferol (D-3) [Vitamin D] 1,000 unit PO DAILY 12/09/16 [History] Docusate [Colace] 100 mg PO BID 12/09/16 [History] Enoxaparin [Lovenox] 80 mg SQ Q12HR 12/09/16 [History] Ferrous Sulfate 325 mg PO BIDWM 12/09/16 [History] Furosemide [Lasix] 20 mg PO DAILY 12/09/16 [History] Gabapentin [Neurontin] 800 mg PO BID 12/09/16 [History] HYDROcodone/Acet 5/325 mg [[place] 5-325 mg] 2 tab PO Q6H PRN 12/09/16 [History] Ipratropium/Albuterol Neb [Duoneb] 3 ml IH QID PRN 12/09/16 [History] L. Acidophilus/Pectin, [place] [Acidophilus Probiotic Capsule] 1 each PO BID [History] Losartan [Cozaar] 25 mg PO DAILY 12/09/16 [History] Magnesium Hydroxide [Milk of Magnesia] 2,400 mg PO DAILY PRN 12/09/16 [History] Magnesium Oxide [Mag-Ox] 400 mg PO BID 12/09/16 [History] Melatonin [Melatin] 9 mg PO HS 12/09/16 [History] Metoprolol [Lopressor] 25 mg PO BID 12/09/16 [History] Mineral Oil/Petrolatum,White [Refresh P.m. Ointment] 1 appl OP HS 12/09/16 [ History] Nicotine Patch [Nicoderm] 7 mg TD DAILY 12/09/16 [History] Potassium Chloride 20% [Potassium Chloride] 20 meq PO Q48H 12/09/16 [History] Sennosides/Docusate Sodium [Senna Plus] 2 each PO DAILY 12/09/16 [History] Sertraline [Zoloft] 100 mg PO DAILY 12/09/16 [History] Simvastatin [Zocor] 20 mg PO HS 12/09/16 [History] Tamsulosin [Flomax] 0.8 mg PO DAILY 12/09/16 [History] Tiotropium [Spiriva] 18 mcg IH 0700 12/09/16 [History] Warfarin [Coumadin] 12 mg PO DAILY 12/09/16 [History] Xanthan Gum [Simplythick] 1 spray PO AD 12/09/16 [History] guaiFENesin [Guaifenesin] 400 mg PO TID PRN 12/09/16 [History] predniSONE [PredniSONE] See Taper PO TAPER 12/09/16 [History] traZODone [TraZODone] 50 mg PO HS 12/09/16 [History] Allergies felodipine Allergy (Verified 12/09/16 17:11) See Comments fentanyl Allergy (Verified 12/09/16 17:11) See Comments lisinopril Allergy (Verified 12/09/16 17:11) See Comments Terazosin Allergy (Verified 12/09/16 17:11) See Comments All Systems Review: A 10-system review of systems was performed and is negative for pertinent findings except as documented above in the HPI. - Cardiovascular Cardiovascular: no chest pain at rest, no chest pain with exertion, no diaphoresis, no dyspnea at rest, no radiating jaw, neck or arm pain, no palpitations - Respiratory Respiratory: no cough, no dyspnea Physical Examination Vital Signs, Last 4 Hours Temp Pulse Resp BP Pulse Ox 12/10/16 11:00 112 22 109/67 97 12/10/16 10:00 117 22 95/66 94 12/10/16 09:36 98.3 F 65 22 90/60 12/10/16 09:31 65 94 12/10/16 09:21 97.9 F 61 18 104/60 98 12/10/16 09:00 65 22 114/63 100 12/10/16 08:00 98.7 F 65 18 131/109 98 General: Conversant, No Apparent Distress Cardiac: Reg Rate and Rhythm, Normal S1 and S2, No Murmur Lungs: Normal Breath Sounds, No Wheeze, Rales, Rhonchi Extremities: No Clubbing, No Cyanosis, No Edema Results 12/10/16 06:42 12/10/16 06:42 Lab Results 12/10/16 12/10/16 12/10/16 03:42 03:42 03:42 WBC 31.5 H* Hgb 8.8 L Hct 27.3 L Plt Count 284 INR 2.3 APTT 27.4 Sodium 141 Potassium 6.0 H Chloride 110 H Carbon Dioxide 19 BUN 33 H Creatinine 2.25 H Glucose 140 H Calcium 8.2 L Magnesium 1.9 Total Bilirubin 0.8 AST 24 ALT 63 H Alkaline Phosphatase 60 12/10/16 12/10/16 06:42 06:42 WBC 25.7 H Hgb 6.6 L D Hct 20.1 L Plt Count 254 INR APTT Sodium 142 Potassium 4.9 H D Chloride 110 H Carbon Dioxide 24 BUN 33 H Creatinine 2.11 H Glucose 109 H Calcium 8.1 L Magnesium Total Bilirubin AST ALT Alkaline Phosphatase Consult Discharge Plan - Plan [facility]: [facility]Primary Care Provider[facility] - <Kadie Vieyra - Last Filed: 12/10/16 18:14> Date of Encounter: 12/10/16 Assessment and Plan Discussion w patient/family: The assessment and plan as outlined above was discussed with the patient and/or family members who expressed understanding and agreement. All questions were answered. Thank you for involving us in the care of your patient. Please call with any questions. History of Present Illness History of present illness: Mr. Hurtado is a 76 year old male All Systems Review: A 10-system review of systems was performed and is negative for pertinent findings except as documented above in the HPI. Physical Examination Vital Signs, Last 4 Hours Temp Pulse Resp BP Pulse Ox 12/10/16 17:06 98.6 F 98 22 156/81 100 12/10/16 17:00 98.2 F 12/10/16 16:33 97.7 F 112 22 122/92 100 12/10/16 16:13 97.5 F L 117 20 94/76 99 12/10/16 16:04 97.2 F L 112 16 112/79 99 12/10/16 16:03 97.5 F L 16 112/79 99 12/10/16 16:02 97.9 F 108 22 131/86 100 12/10/16 16:00 97.2 F L 96 22 112/79 100 12/10/16 15:28 97.7 F 120 22 90/59 100 12/10/16 15:00 96 24 69/51 100 Results 12/10/16 14:30 12/10/16 06:42 Lab Results 12/10/16 12/10/16 12/10/16 03:42 03:42 03:42 WBC 31.5 H* Hgb 8.8 L Hct 27.3 L Plt Count 284 INR 2.3 APTT 27.4 Sodium 141 Potassium 6.0 H Chloride 110 H Carbon Dioxide 19 BUN 33 H Creatinine 2.25 H Glucose 140 H Calcium 8.2 L Magnesium 1.9 Total Bilirubin 0.8 AST 24 ALT 63 H Alkaline Phosphatase 60 12/10/16 12/10/16 12/10/16 06:42 06:42 14:30 WBC 25.7 H Hgb 6.6 L D 6.7 L Hct 20.1 L 20.3 L Plt Count 254 INR APTT Sodium 142 Potassium 4.9 H D Chloride 110 H Carbon Dioxide 24 BUN 33 H Creatinine 2.11 H Glucose 109 H Calcium 8.1 L Magnesium Total Bilirubin AST ALT Alkaline Phosphatase - Attending Attestation I examined this patient and my medical decision-making was reviewed with the [employer]INEERING/PA/Advanced Practice Nurse/Resident Physician. I agree with the documented findings, disposition and treatment plan. I examined this patient and my medical decision-making was reviewed with the [employer]IV[employer] ENGINEERING/PA/Advanced Practice Nurse/Resident Physician. I agree with the documented findings, disposition and treatment plan as described except to the extent set forth below. Mr. Hurtado presented with lower abdominal pain and was found to have a large rectus sheath and retroperitoneal hematoma and a drop in Hgb to 6.6. He has been supported with blood products and has been hemodynamically stable. He was alert and conversant at the bedside without acute distress. I discussed with him the high risk for mechanical valve complications when subtherapeutic with INR. The patient expressed understanding. I also discussed my concern with the ICU attending. The patient was re-scanned this afternoon with CT demonstrating expansion of hematoma. I continue to recommend support with blood products and defer critical care to ICU. I would avoid use of vitamin K in this setting if possible. Patient's will be updated.
--- NOTE | 2016-12-10 12:00 | Nephrology Consult Note ---
Date of Encounter: 12/10/16 Time of Encounter: 11:58 Assessment and Plan (1) Acute kidney failure, unspecified Current Visit: Yes Status: Acute The patient has a clinical picture of acute kidney injury in the setting of acute blood loss anemia related to retroperitoneal hematoma as well as a hematoma of the rectus sheath. This in turn is likely related to the Lovenox. Patient has been stabilized currently. Hopefully his acute kidney injury will start to resolve. We have the added factor of several intravascular contrast procedures including a CTA as well as her traditional angiogram. The patient will need to be monitored closely as his kidney function may worsen before it starts to get better. Qualifiers: Acute renal failure type: unspecified Qualified Code(s): N17.9 - Acute kidney failure, unspecified (2) Lung cancer Current Visit: Yes Status: Acute Qualifiers: Laterality: left Lung location: unspecified part of lung Qualified Code(s ): C34.92 - Malignant neoplasm of unspecified part of left bronchus or lung (3) Retroperitoneal hematoma Current Visit: Yes Status: Acute (4) History of mitral valve repair Current Visit: Yes Status: Acute (5) Anemia due to acute blood loss Current Visit: Yes Status: Acute History of Present Illness - History of Present Illness This is a 76-year-old male who was admitted [facility] with complaints of new onset abdominal pain. Patient was found to have a large retroperitoneal hematoma as well as a hematoma of the rectus sheath. He underwent a CT angiogram eventually a conventional angiogram. He had embolization of the left inferior epigastric artery. On admission patient was noted to have a creatinine of 2.11. Patient has no previous history of renal disease. He denies diabetes hematuria proteinuria renal stone disease. He does have some difficulty emptying his bladder. There is a past history of prostatic hypertrophy and he is status post TURP. He does not take anti-inflammatory medications. Creatinine done at the [facility] on November 15 was 0.9 with a GFR of 60. Patient was recently hospitalized at [facility]. He has a recent diagnosis of lung carcinoma. He underwent a bronchoscopy because of pulmonary hemorrhage. He had cauterization done. He has a history of mitral valve replacement and had been on Coumadin. His Coumadin was held and he was placed on heparin when he was hospitalized at [facility]. He was then discharged to the [facility] and was placed on Lovenox as a bridge until his INR was therapeutic. At the time of admission here his INR was 2.1. Hemoglobin has been as low as 6.6. Past Med Surg Social Fam HX - Past Medical History Medical history: arthritis, cancer (Squamous cell carcinoma of the lung), coronary artery disease, CVA (With left-sided weakness), hypertension, other ( Mitral valve replacement, splenectomy, pacemaker) Psychiatric history: anxiety, depression - Social History Smoking Status: Former smoker Smokeless Tobacco Status: No Alcohol use: none Drug use: none Medications and Allergies Acetaminophen [Tylenol] 650 mg PO Q8H PRN 12/09/16 [History] Albuterol Sulfate [Albuterol Inhaler] 2 puff IH Q6H PRN 12/09/16 [History] Allopurinol [Zyloprim 300 MG] 300 mg PO DAILY 12/09/16 [History] Aspirin Enteric Coated [Aspirin EC] 81 mg PO DAILY 12/09/16 [History] Benzonatate [Tessalon] 100 mg PO TID PRN 12/09/16 [History] Bisacodyl [Dulcolax] 10 mg PO Q48H PRN 12/09/16 [History] Calcium Carbonate/Vitamin D3 [Calcium 250+D Tablet] 2 each PO BID 12/09/16 [ History] Cetirizine HCl [Zyrtec] 10 mg PO DAILY PRN 12/09/16 [History] Cholecalciferol (D-3) [Vitamin D] 1,000 unit PO DAILY 12/09/16 [History] Docusate [Colace] 100 mg PO BID 12/09/16 [History] Enoxaparin [Lovenox] 80 mg SQ Q12HR 12/09/16 [History] Ferrous Sulfate 325 mg PO BIDWM 12/09/16 [History] Furosemide [Lasix] 20 mg PO DAILY 12/09/16 [History] Gabapentin [Neurontin] 800 mg PO BID 12/09/16 [History] HYDROcodone/Acet 5/325 mg [[place] 5-325 mg] 2 tab PO Q6H PRN 12/09/16 [History] Ipratropium/Albuterol Neb [Duoneb] 3 ml IH QID PRN 12/09/16 [History] L. Acidophilus/Pectin, [address] [Acidophilus Probiotic Capsule] 1 each PO BID [History] Losartan [Cozaar] 25 mg PO DAILY 12/09/16 [History] Magnesium Hydroxide [Milk of Magnesia] 2,400 mg PO DAILY PRN 12/09/16 [History] Magnesium Oxide [Mag-Ox] 400 mg PO BID 12/09/16 [History] Melatonin [Melatin] 9 mg PO HS 12/09/16 [History] Metoprolol [Lopressor] 25 mg PO BID 12/09/16 [History] Mineral Oil/Petrolatum,White [Refresh P.m. Ointment] 1 appl OP HS 12/09/16 [ History] Nicotine Patch [Nicoderm] 7 mg TD DAILY 12/09/16 [History] Potassium Chloride 20% [Potassium Chloride] 20 meq PO Q48H 12/09/16 [History] Sennosides/Docusate Sodium [Senna Plus] 2 each PO DAILY 12/09/16 [History] Sertraline [Zoloft] 100 mg PO DAILY 12/09/16 [History] Simvastatin [Zocor] 20 mg PO HS 12/09/16 [History] Tamsulosin [Flomax] 0.8 mg PO DAILY 12/09/16 [History] Tiotropium [Spiriva] 18 mcg IH 0700 12/09/16 [History] Warfarin [Coumadin] 12 mg PO DAILY 12/09/16 [History] Xanthan Gum [Simplythick] 1 spray PO AD 12/09/16 [History] guaiFENesin [Guaifenesin] 400 mg PO TID PRN 12/09/16 [History] predniSONE [PredniSONE] See Taper PO TAPER 12/09/16 [History] traZODone [TraZODone] 50 mg PO HS 12/09/16 [History] Allergies felodipine Allergy (Verified 12/09/16 17:11) See Comments fentanyl Allergy (Verified 12/09/16 17:11) See Comments lisinopril Allergy (Verified 12/09/16 17:11) See Comments Terazosin Allergy (Verified 12/09/16 17:11) See Comments Review of Systems Constitutional: as per HPI, weakness Eyes: bilateral: blurred vision (patient denies), diplopia (patient denies) Nose, mouth and throat: no dizziness, no headache(s) Cardiovascular: dyspnea on exertion Respiratory: hemoptysis, dyspnea on exertion Gastrointestinal: abdominal pain Genitourinary Male: difficulty urinating Musculoskeletal: no muscle weakness, no numbness Integumentary: no hirsutism, no striae Neurological: as per HPI Psychiatric: no depression, no difficulty concentrating Endocrine: as per HPI Exam - Vital Signs Vital signs: Initial Vital Signs Temp Pulse Resp BP Pulse Ox 96.8 F L 72 18 84/70 97 12/09/16 17:12 12/09/16 17:12 12/09/16 17:12 12/09/16 17:12 12/09/16 17:12 Vital Signs - Last 8 Hours Temp Pulse Resp BP Pulse Ox 12/10/16 11:00 112 22 109/67 97 12/10/16 10:00 117 22 95/66 94 12/10/16 09:36 98.3 F 65 22 90/60 12/10/16 09:31 65 94 12/10/16 09:21 97.9 F 61 18 104/60 98 12/10/16 09:00 65 22 114/63 100 12/10/16 08:00 98.7 F 65 18 131/109 98 12/10/16 07:05 98.7 F 12/10/16 07:00 61 18 142/64 98 12/10/16 06:05 117 22 133/78 96 12/10/16 06:00 117 12/10/16 05:38 98.9 F 113 21 135/74 12/10/16 05:00 105 22 129/74 99 12/10/16 04:39 98.1 F 105 18 126/67 12/10/16 04:29 97.7 F 12/10/16 04:24 98.4 F 103 24 115/64 12/10/16 04:00 116 17 89/62 94 Intake and Output 12/09/16 12/10/16 12/10/16 23:59 07:59 15:59 Intake Total 1070.08 / 1070.08 0 / 0 Output Total 340 / 340 Balance 730.08 / 730.08 0 / 0 Intake: IV Fluids 370.08 / 370.08 HumuLIN R 8 UNIT In 10.08 / 10.08 Normal Saline Flush 10 ML @ 1209.6 mls/hr IV ONCE ONE Rx#:[id number] ALBURX 5% 12.5 gm In 250 250 / 250 ml @ 60 mls/hr IVC . Q4H10M [facility] Rx#:[id number] Calcium Gluconate 1,000 110 / 110 MG In Dextrose 5% 100 ML @ 220 mls/hr IVPB ONCE ONE Rx#:[id number] Blood Product 700 / 700 0 / 0 Plasma Unit 350 / 350 [id number] Plasma Unit 350 / 350 [id number] Rbcs Leuko Poor As-1 0 / 0 Unit [id number] Output: Catheter 340 / 340 - General Appearance Exam: The patient is alert and oriented. He is in no acute distress. Lungs diminished breath sounds. Heart regular rate and rhythm. Abdomen is firm. There is generalized tenderness related to the presence of a hematoma of the rectus sheath. There is some edema of the upper thighs. There is no abnormal skin rash. Results - Lab Results 12/10/16 06:42 12/10/16 06:42 Most recent lab results Calcium 8.1 mg/dL (8.6-10.8) L 12/10/16 06:42 Magnesium 1.9 mg/dL (1.6-2.6) 12/10/16 03:42 Consult Discharge Plan - Plan [facility]errals: [facility] [Primary Care Provider] -
[2016-12-10 14:43] LABS: Hematocrit 20.3 % (37.5-50.1); Hemoglobin 6.7 g/dL (12.9-16.9)
[2016-12-10] MEDS ORDERED: PHYTONADIONE IVPB ONE ×2 (14:57→16:00)
[2016-12-10] MEDS ORDERED: SODIUM CHLORIDE 0.9% IVPB ONE ×2 (14:57→16:00)
[2016-12-10] MEDS ORDERED: 0.9 % Sodium Chloride 1,000 ML ONE ×2 (15:09→15:11)
[2016-12-10] MEDS ORDERED: D5% in Water 250 ML ONE (15:53)
[2016-12-10] MEDS ORDERED: *HR* Norepinephrine 4 MG/4 ML VIAL IVC ONE (15:53)
[2016-12-10] MEDS ORDERED: Norepinephrine 4 MG in D5% in Water 250 ML IVC SCH (17:15)
[2016-12-10 19:33] LABS: Hematocrit 22.8 % (37.5-50.1); Hemoglobin 7.7 g/dL (12.9-16.9)
[2016-12-10 23:55] LABS: Hematocrit 20.7 % (37.5-50.1)
[2016-12-11] MEDS ORDERED: 0.9 % Sodium Chloride 250 ML ONE ×2 (01:30→04:34)
[2016-12-11] MEDS ORDERED: *HR* Morphine 2 MG/ML SYRINGE IVP PRN (02:46)
[2016-12-11 04:18] LABS: Albumin 2.9 g/dL (3.5-5.0); Albumin/Globulin Ratio 1.5 (1.1-2.2); Bilirubin,Total 1.4 mg/dL (0.2-1.2); Calcium 8.3 mg/dL (8.6-10.8); Globulin 1.9 g/dL (2.4-3.5); Total Protein 4.8 g/dL (6.0-8.3)
[2016-12-11 04:21] LABS: Potassium 6.1 mEq/L (3.5-4.5)
[2016-12-11 06:03] VITALS: BP 117/93
[2016-12-11] MEDS ORDERED: Furosemide 40 MG/4 ML VIAL ONE (06:08)
--- NOTE | 2016-12-11 06:25 | Death Note ---
Pronouncement Note - Date and Time of Date of : 12/11/16 Time of : 06:20 - PCOD Preliminary cause of : Hemorrhage while on warfarin therapy - Summary Additional details: I was called to assess this patient whose respirations had ceased On exam, patient did not have a pulse. No spontaneous breathing movements Pupils fixed and dilated. No oculocephalic reflex No spontaneous respirations noted Patient is DNRCC-Arrest and hence, code was not activated Patient pronounced at 0620 hours Cause of is anemia and hemorrhage due to warfarin therapy causing hemorrhagic shock from retroperitoneal bleed - Additional Data Confirmation of : no pulse, no respirations, pupils fixed and dilated Family: not available Attending/PCP notified?: Yes Attending physician: Dr. Johnson Was code activated?: No Advance directives: Yes (DNRCC-Arrest)
[2016-12-11] MEDS ORDERED: Piperacillin/Tazobactam 3.375 GM in D5% in Water (Mini-Bag+) 100 ML IVPB SCH (08:00)
--- NOTE | 2016-12-15 16:08 | Death Note ---
Discharge Sum: Summary - Date and Time Date of admission: 12/10/16 02:14 Date of : 12/11/16 Time of : 06:20 - Summary Details: The patient was admitted in the folding machine tender of 12/10/2016 for retroperitoneal and rectus sheath hematoma. Patient underwent embolization procedure performed by interventional radiology initially appeared to result in hemostasis. Patient 's condition was called. By the presence of mechanical mitral valve requiring systemic anticoagulation. In the evening of December 10 in the morning of December 11 there is evidence of progressive hemorrhage based on clinical exam showed increased abdominal distention, hypotension, and progressive anemia. Additional resuscitation was attempted with transfusions of packed red blood cells and fresh frozen plasma. Patient was also placed on vasopressor support with norepinephrine. Patient's and adult son were present for's resuscitation and reiterated his DNR/DNI CODE STATUS. As a tensor resuscitation became less and less effective, patient's son and elected for transition to comfort measures. The patient's mental status was such that he was unable to make decisions on his own behalf. At 0620 hrs. on December 11 the patient was apneic and pulseless and was pronounced . - Additional Data Confirmation of as documented by pronouncing clinician: no pulse, no respirations Family: contacted Attending/PCP notified?: Yes Attending physician: Elbert Griffith MD Was code activated?: No Autopsy requested?: No claims examiner notified?: Yes Organ bank notified?: Yes Advance directives: Yes (DNR/DNI) Hospice patient?: No Discharge Sum: Diag - PCOD Probable Cause of : Hemorrhagic shock Discharge Sum: Prov - Provider Primary care physician: PCP [place] Admitting clinician: Norman Lezama Attending physician on admission: Jeff Johnson Consults: 12/10/16 04:34 Consult to Nephrology [CONS] Routine Consulting Provider: [facility] Reason for Consult: REBEKAH Call Completed: No Pronouncing clinician: Ramesh Kumar
== END 2016-12-11 06:20 | disposition expired | DRG 252 ==
LOC: EMEROO 17:07 → ICNU 17:07
PROVIDERS: ADMIT Internal Medicine; ATTEND Internal Medicine
PROC: IRANGIO (2016-12-10 00:15)